=== PATIENT | female | born 1960 | race Caucasian/White ===

== ENCOUNTER → 2018-02-18 | Outpatient (CLI) | payer BC ==
[~2018-02-18] MED LIST: VICODIN 5/500 505 MG PO; Zofran4 MG PO
--- NOTE | ~2018-02-18 | EKG ---
[place], [place] ELECTROCARDIOGRAM REPORT NAME: HAVEN ASHER UNIT #: [id number] ROOM: DOCTOR: EPIPHBRONWYN DRAFT REPORT BIRTHDATE: [birth year] [facility] Test Date: 2018-02-18 Test Time: 09:27:48 Pat Name: HAVEN ASHER Department: Room: Gender: [employer] Clerk: PAWEL : 1960 Requested By: HERBIE VILLAGRAN Order Number: [id number] Reading MD: Brenden Ludwig MD Measurements Intervals [place] Rate: 63 P: 22 DC: 128 QRS: 15 QRSD: 94 T: 26 QT: 404 QTc: 414 Interpretive Statements Sinus rhythm Electronically Signed On 02-18-2018 14:54:14 PDT by Brenden Ludwig MD CM:EKGRPT:ELECTROCARDIOGRAM REPORT [id number] HERBIE LOO DRAFT REPORT HERBIE VILLAGRAN DO
[2018-02-18 09:49] LABS: BILIRUBIN NEGATIVE (NEGATIVE); BLOOD 1+ (NEGATIVE); CLARITY CLEAR (CLEAR); COLOR YELLOW (YELLOW); GLUCOSE NEGATIVE (NEGATIVE); KETONE NEGATIVE (NEGATIVE); LEUKO ESTERASE NEGATIVE (NEGATIVE); NITRITE NEGATIVE (NEGATIVE); SPECIFIC GRAVITY 1.015 (1.005-1.030); UROBILINOGEN 0.2 E.U./dl (0.2-1.0)
[2018-02-18 10:01] LABS: BASO % 0.8 % (0.0-1.0); EOS # 0.1 10*3/uL (0.0-0.4); HEMATOCRIT 38.4 % (37.0-47.0); HEMOGLOBIN 12.1 g/dl (12.0-16.0); LYMPH # 1.6 10*3/uL (1.3-4.4); LYMPH % 40.6 % (27.0-41.0); MEAN CELL VOLUME 92.8 fl (81.0-99.0); MEAN CORPUSCULAR HGB 29.2 pg (27.0-31.0); MEAN CORPUSCULAR HGB CONC 31.5 g/dl (33.0-37.0); MEAN PLATELET VOLUME 10.8 fl (9.6-12.3); MONO # 0.3 10*3/uL (0.1-1.0); MONO % 8.6 % (3.0-9.0); NEUT # 1.9 10*3/uL (2.3-7.9); NEUT % 46.7 % (47.0-73.0); PLATELET COUNT AUTOMATED 155 10*3/uL (130-400); RED BLOOD COUNT 4.14 10*6/uL (4.10-5.10); RED CELL DISTRI WIDTH 13.1 % (0-14.5)
[2018-02-18 10:09] LABS: EPITHELIAL CELLS 0-2; WBC 0-2 wbc/hpf (0-5)
[2018-02-18 10:14] LABS: ACT PARTIAL THROMBO TIME 24.9 SECONDS (20.8-31.5); ALBUMIN 4.3 gm/dl (3.1-4.5); ALKALINE PHOSPHATASE 62 U/L (45-117); BUN 20 mg/dl (7-24); CHLORIDE 106 mmol/L (98-107); CREATININE 1.04 mg/dL (0.55-1.02); INTERNATIONAL NORM RATIO 0.9 (2.0-3.5); POTASSIUM 4.2 mmol/L (3.5-5.1); SGOT/AST 19 IU/L (3-35); SGPT/ALT 27 U/L (12-78); SODIUM 143 mmol/L (136-145); TOTAL PROTEIN 7.3 gm/dL (6.4-8.2)
== END | disposition home or self-care (01) ==
LOC: LAB 08:58
PROVIDERS: Orthopaedic Surgery
DX: Z01.818 Encounter for other preprocedural examination (principal); M19.90 Unspecified osteoarthritis, unspecified site; R53.83 Other fatigue; R06.02 Shortness of breath; E03.9 Hypothyroidism, unspecified

== ENCOUNTER 2019-08-12 12:41 | Inpatient (IN) | payer BC ==
[2019-08-12] VITALS (7 sets, daily range): BP systolic 107–123; BP diastolic 39–65
[~2019-08-12] VITALS: Ht 160 cm; Wt 80.4 kg
[2019-08-12 13:04] LABS: HEMATOCRIT 37.6 % (37.0-47.0); HEMOGLOBIN 12.4 g/dl (12.0-16.0); MEAN CORPUSCULAR HGB 29.7 pg (27.0-31.0); PLATELET COUNT AUTOMATED 109 10*3/uL (130-400); RED BLOOD COUNT 4.18 10*6/uL (4.10-5.10); RED CELL DISTRI WIDTH 12.8 % (0-14.5); WHITE BLOOD COUNT 8.1 10*3/uL (4.8-10.8)
[2019-08-12 13:13] LABS: ACT PARTIAL THROMBO TIME 26.1 SECONDS (20.0-32.1); INTERNATIONAL NORM RATIO 0.9 (2.0-3.5)
[2019-08-12 13:20] LABS: BUN 13 mg/dl (7-24); CHLORIDE 104 mmol/L (98-107); SGOT/AST 17 IU/L (3-35); SGPT/ALT 21 U/L (12-78); SODIUM 136 mmol/L (136-145); TOTAL PROTEIN 7.1 gm/dL (6.4-8.2)
[2019-08-12 13:22] LABS: ALKALINE PHOSPHATASE 67 U/L (45-117)
[2019-08-12 13:24] LABS: ATYPICAL LYMPHS 1 % (0-0); PLATELET SUFFICIENCY LOW (NORMAL); TOTAL CELLS COUNTED 100 #CELLS; TROPONIN I < 0.015 ng/ml (<0.045)
[2019-08-12 14:31] LABS: BILIRUBIN NEGATIVE (NEGATIVE); BLOOD 3+ (NEGATIVE); CLARITY SL CLOUDY (CLEAR); COLOR ORANGE (YELLOW); GLUCOSE NEGATIVE (NEGATIVE); KETONE 1+ (NEGATIVE); LEUKO ESTERASE 2+ (NEGATIVE); NITRITE NEGATIVE (NEGATIVE); PH 6.5 (5.0-9.0); UROBILINOGEN 0.2 E.U./dl (0.2-1.0)
[2019-08-12 14:52] LABS: BACTERIA TRACE; RBC TNTC rbc/hpf (0-2); WBC 16-20 wbc/hpf (0-5)
[2019-08-12] MEDS ORDERED: MELOXICAM15 MG PO (18:31)
[2019-08-12] MEDS ORDERED: PLAQUENIL200 MG PO ×2 (18:33)
[2019-08-12] MEDS ORDERED: Synthroid,Lev100 MCG PO (18:35)
[2019-08-12] MEDS ORDERED: ALLEGRA ALLERG180 M2 PO (18:35)
[2019-08-12] MEDS ORDERED: VITAMIN D32000 UNI1 PO (18:35)
[2019-08-12] MEDS ORDERED: FLONASE ALLERG9.9 ML NAS (18:36)
[2019-08-12] MEDS ORDERED: B-125000 MCG PO (18:36)
[2019-08-12] MEDS ORDERED: TYLENOL EXTRA500 M2 PO (18:37)
[2019-08-12] MEDS ORDERED: AMITRIPTYLINE25 MG PO (18:38)
[2019-08-12] MEDS ORDERED: BENLYSTA200 MG/1 M SQ (18:38)
[2019-08-12] MEDS ORDERED: TOPCARE OMEPRAZ20 MG PO (18:39)
[2019-08-12] MEDS ORDERED: KEFLEX250 MG PO (18:44)
[2019-08-12 20:44] LABS: URINE AMPHETAMINES < 1000 (1000ng/ml); URINE BARBITURATES < 200 (200ng/ml); URINE BENZODIAZEPINES < 200 (200ng/ml); URINE CANNABINOIDS (THC) < 50 (50ng/ml); URINE COCAINE < 300 (300ng/ml); URINE METHADONE < 300 (300ng/ml); URINE OPIATES < 300 (300ng/ml)
[2019-08-12 20:45] LABS: URINE PHENCYCLIDINE < 25 (25ng/ml)
[2019-08-13] VITALS: BP 142/74
[2019-08-13 07:10] LABS: BUN 10 mg/dl (7-24); CHLORIDE 109 mmol/L (98-107); CHOLESTEROL 153 mg/dL (<200); CREATININE 0.93 mg/dL (0.55-1.02); HEMATOCRIT 33.8 % (37.0-47.0); MEAN CELL VOLUME 92.6 fl (81.0-99.0); MEAN CORPUSCULAR HGB 30.1 pg (27.0-31.0); MEAN CORPUSCULAR HGB CONC 32.5 g/dl (33.0-37.0); MEAN PLATELET VOLUME 10.6 fl (9.6-12.3); PLATELET COUNT AUTOMATED 90 10*3/uL (130-400); RED BLOOD COUNT 3.65 10*6/uL (4.10-5.10); SODIUM 139 mmol/L (136-145); TRIGLYCERIDES 60 mg/dl (<150); VLDL CHOLESTEROL 12 mg/dL (6-40); WHITE BLOOD COUNT 7.9 10*3/uL (4.8-10.8)
[2019-08-13 07:21] LABS: HDL CHOLESTEROL 69 mg/dl (40-60); LDL CHOLESTEROL 72 mg/dL (9-159)
[2019-08-13 08:04] LABS: PLATELET SUFFICIENCY LOW (NORMAL); TOTAL CELLS COUNTED 100 #CELLS
[2019-08-13 08:05] VITALS: BP 126/56
[2019-08-13 12:00] VITALS: BP 137/51
[2019-08-13 16:00] VITALS: BP 106/65
[2019-08-13 20:00] VITALS: BP 115/61
[2019-08-14] VITALS: BP 106/42
[2019-08-14 07:52] LABS: BASO % 0.2 % (0.0-1.0); EOS % 0.2 % (1.0-4.0); HEMOGLOBIN 9.8 g/dl (12.0-16.0); LYMPH # 0.6 10*3/uL (1.3-4.4); LYMPH % 9.6 % (27.0-41.0); MEAN CELL VOLUME 92.3 fl (81.0-99.0); MEAN CORPUSCULAR HGB 30.2 pg (27.0-31.0); MEAN CORPUSCULAR HGB CONC 32.7 g/dl (33.0-37.0); MEAN PLATELET VOLUME 10.5 fl (9.6-12.3); MONO # 0.7 10*3/uL (0.1-1.0); MONO % 11.3 % (3.0-9.0); NEUT # 5.1 10*3/uL (2.3-7.9); NEUT % 78.4 % (47.0-73.0); PLATELET COUNT AUTOMATED 75 10*3/uL (130-400); RED BLOOD COUNT 3.25 10*6/uL (4.10-5.10); RED CELL DISTRI WIDTH 12.9 % (0-14.5); WHITE BLOOD COUNT 6.5 10*3/uL (4.8-10.8)
[2019-08-14 08:00] VITALS: BP 136/54
[2019-08-14 08:01] LABS: BUN 9 mg/dl (7-24); CHLORIDE 110 mmol/L (98-107); CREATININE 0.56 mg/dL (0.55-1.02); PHOSPHOROUS 1.5 mg/dL (2.5-4.9); POTASSIUM 3.6 mmol/L (3.5-5.1); SODIUM 139 mmol/L (136-145)
[2019-08-14 12:00] VITALS: BP 119/50
[2019-08-14] MEDS ORDERED: AMOXICILLIN500 M2 PO (16:21)
== END 2019-08-14 17:21 | disposition home or self-care (01) | DRG 690 ==
LOC: ED 12:41 → EDHOLD 16:06 → 4E 16:06
PROVIDERS: Emergency Medicine; Family Medicine; Student in an Organized Health Care Education/Training Program; ADMIT Family Medicine
DX: N12 Tubulo-interstitial nephritis, not specified as acute or chronic (principal); M32.9 Systemic lupus erythematosus, unspecified; E83.39 Other disorders of phosphorus metabolism; R31.9 Hematuria, unspecified; D69.6 Thrombocytopenia, unspecified; E03.9 Hypothyroidism, unspecified; E66.9 Obesity, unspecified; D64.9 Anemia, unspecified; Z96.652 Presence of left artificial knee joint; R73.9 Hyperglycemia, unspecified; Z87.442 Personal history of urinary calculi; Z82.49 Family history of ischemic heart disease and other diseases of the circulatory system; Z88.8 Allergy status to other drugs, medicaments and biological substances; Z79.899 Other long term (current) drug therapy; Z68.31 Body mass index [BMI] 31.0-31.9, adult

== ENCOUNTER → 2020-07-11 | Outpatient (CLI) | payer BC ==
[~2020-07-11] MED LIST changes: +ALLEGRA ALLERG180 M2 PO; +AMITRIPTYLINE25 MG PO; +AMOXICILLIN500 M2 PO; +B-125000 MCG PO; +BENLYSTA200 MG/1 M SQ; +FLONASE ALLERG9.9 ML NAS; +KEFLEX250 MG PO; +MELOXICAM15 MG PO; +PLAQUENIL200 MG PO; +Synthroid,Lev100 MCG PO; +TOPCARE OMEPRAZ20 MG PO; +TYLENOL EXTRA500 M2 PO; +VITAMIN D32000 UNI1 PO
== END | disposition home or self-care (01) ==
LOC: COVID19 15:47
PROVIDERS: ATTEND Family Medicine
DX: U07.1 COVID-19 (principal)

== ENCOUNTER 2022-11-14 13:05 | Emergency (ER) | payer OTHER, MEDICARE ==
[~2022-11-14] VITALS: Ht 160 cm; Wt 88.9 kg
[2022-11-14] MEDS ORDERED: VIBRAMYCIN100 MG PO (13:30)
== END 2022-11-14 13:49 | disposition home or self-care (01) ==
LOC: ED 13:05
DX: J34.0 Abscess, furuncle and carbuncle of nose (principal); Z87.442 Personal history of urinary calculi; Z88.2 Allergy status to sulfonamides; Z88.8 Allergy status to other drugs, medicaments and biological substances; Z98.51 Tubal ligation status; Z90.49 Acquired absence of other specified parts of digestive tract; Z96.652 Presence of left artificial knee joint; Z98.890 Other specified postprocedural states

== ENCOUNTER 2023-02-03 19:23 | Emergency (ER) | payer OTHER, MEDICARE ==
[~2023-02-03] VITALS: Wt 85.7 kg
[~2023-02-03 19:23] MED LIST changes: +VIBRAMYCIN100 MG PO
[2023-02-03 19:58] LABS: BILIRUBIN Negative (Negative); BLOOD 3+ (Negative); CLARITY Cloudy (Clear); COLOR Yellow (Yellow); GLUCOSE Negative (Negative); KETONE Negative (Negative); LEUKO ESTERASE 3+ (Negative); NITRITE Negative (Negative); PH 5.5 (4.5-8.0); SPECIFIC GRAVITY 1.015 (1.001-1.030)
[2023-02-03 20:09] LABS: BACTERIA 2+; EPITHELIAL CELLS 0-2; WBC 21-30 wbc/hpf (0-5)
[2023-02-03] MEDS ORDERED: CIPRO500 MG PO (20:37)
== END 2023-02-03 20:45 | disposition home or self-care (01) ==
LOC: ED 19:23
PROVIDERS: Internal Medicine
DX: N39.0 Urinary tract infection, site not specified (principal); Z88.8 Allergy status to other drugs, medicaments and biological substances; Z88.2 Allergy status to sulfonamides; Z98.51 Tubal ligation status; Z90.49 Acquired absence of other specified parts of digestive tract; Z96.652 Presence of left artificial knee joint; Z98.890 Other specified postprocedural states; Z87.442 Personal history of urinary calculi

== ENCOUNTER 2024-07-06 10:15 | Emergency (ER) | payer BC, MEDICARE ==
[~2024-07-06] VITALS: Ht 160 cm; Wt 83.9 kg
[~2024-07-06 10:15] MED LIST changes: +CIPRO500 MG PO
[2024-07-06] MEDS ORDERED: GABAPENTIN600 MG PO (10:23)
[2024-07-06] MEDS ORDERED: AMITRIPTYLINE50 MG PO (10:23)
[2024-07-06] MEDS ORDERED: CYCLOBENZAPRINE10 MG PO (10:24)
[2024-07-06] MEDS ORDERED: ROSUVASTATIN CA10 MG PO (10:24)
[2024-07-06] MEDS ORDERED: TOLTERODINE TART1 M1 PO (10:24)
[2024-07-06] MEDS ORDERED: NAPROXEN 250 MG TAB PO ONE (10:50)
[2024-07-06] MEDS ORDERED: METHOCARBAMOL 500 MG TAB PO ONE (12:30)
[2024-07-06] MEDS ORDERED: NAPROSYN500 MG PO (13:19)
[2024-07-06] MEDS ORDERED: METHOCARBAMOL500 M1 PO (13:19)
== END 2024-07-06 13:22 | disposition home or self-care (01) ==
LOC: ED 10:15
DX: S16.1XXA Strain of muscle, fascia and tendon at neck level, initial encounter (principal); G43.909 Migraine, unspecified, not intractable, without status migrainosus; R42 Dizziness and giddiness; Z87.442 Personal history of urinary calculi; Z88.2 Allergy status to sulfonamides; Z88.8 Allergy status to other drugs, medicaments and biological substances; Z96.652 Presence of left artificial knee joint; Z98.890 Other specified postprocedural states; Z90.49 Acquired absence of other specified parts of digestive tract; X58.XXXA Exposure to other specified factors, initial encounter; Y93.89 Activity, other specified; Y92.89 Other specified places as the place of occurrence of the external cause; Y99.8 Other external cause status

== ENCOUNTER → 2024-08-24 | Outpatient (CLI) | payer BC, MEDICARE ==
[~2024-08-24] MED LIST changes: +AMITRIPTYLINE50 MG PO; +CYCLOBENZAPRINE10 MG PO; +GABAPENTIN600 MG PO; +METHOCARBAMOL500 M1 PO; +NAPROSYN500 MG PO; +ROSUVASTATIN CA10 MG PO; +TOLTERODINE TART1 M1 PO
[2024-08-24 10:57] LABS: CHOLESTEROL 147 mg/dL (<200); LDL CHOLESTEROL 67 mg/dL (9-159); TRIGLYCERIDES 63 mg/dl (<150)
== END | disposition home or self-care (01) ==
LOC: LAB 10:12
PROVIDERS: ATTEND Nurse Practitioner Family
DX: Z79.899 Other long term (current) drug therapy (principal)

== ENCOUNTER → 2025-07-18 | Outpatient (CLI) | payer BC, MEDICARE ==
[2025-07-18 10:04] LABS: BASO # 0.0 10*3/uL (0.0-0.1); BASO % 0.5 % (0.0-1.0); EOS # 0.1 10*3/uL (0.0-0.4); EOS % 1.6 % (1.0-4.0); MEAN CELL VOLUME 91.3 fl (81.0-99.0); MEAN CORPUSCULAR HGB 29.7 pg (27.0-31.0); MEAN PLATELET VOLUME 9.7 fl (9.6-12.3); MONO # 0.3 10*3/uL (0.1-1.0); MONO % 6.8 % (3.0-9.0); NEUT # 2.0 10*3/uL (2.3-7.9); NEUT % 53.9 % (47.0-73.0); NUCLEATED RED BLOOD CELL 0.0 % (0.0-0.0); NUCLEATED RED BLOOD CELL 0.0 10*3/uL (0.0-0.0); PLATELET COUNT AUTOMATED 134 10*3/uL (130-400); RED CELL DISTRI WIDTH 13.6 % (0-14.5)
[2025-07-18 10:10] LABS: BILIRUBIN Negative (Negative); BLOOD Trace-Lysed (Negative); CLARITY Clear (Clear); COLOR Yellow (Yellow); KETONE Negative (Negative); LEUKO ESTERASE Trace (Negative); NITRITE Negative (Negative); PH 6.5 (4.5-8.0); SPECIFIC GRAVITY 1.010 (1.001-1.030); UROBILINOGEN 0.2 E.U./dl (0.0-1.0)
[2025-07-18 10:14] LABS: ACT PARTIAL THROMBO TIME 25.0 SECONDS (20.0-32.1)
[2025-07-18 10:32] LABS: BUN 14 mg/dl (9-23); SGPT/ALT 12 U/L (5-49)
[2025-07-18 11:02] LABS: BACTERIA 1+; MUCOUS 2+; YEAST 1+
== END | disposition home or self-care (01) ==
LOC: LAB 09:21
PROVIDERS: ATTEND Orthopaedic Surgery
DX: Z01.818 Encounter for other preprocedural examination (principal)

== ENCOUNTER 2025-08-04 10:09 | Inpatient (IN) | payer BC, MEDICARE ==
[~2025-08-04] VITALS: Ht 157.4 cm; Wt 80.7 kg
[2025-08-04 10:14] VITALS: BP 112/61
[2025-08-04] MEDS ORDERED: SODIUM CHLORIDE 0.9% 1,000 ML IV ONE ×2 (10:35→14:50)
[2025-08-04 10:54] LABS: BASO # 0.0 10*3/uL (0.0-0.1); BASO % 0.0 % (0.0-1.0); EOS # 0.0 10*3/uL (0.0-0.4); EOS % 0.8 % (1.0-4.0); MEAN CELL VOLUME 89.4 fl (81.0-99.0); MEAN CORPUSCULAR HGB 29.2 pg (27.0-31.0); MEAN PLATELET VOLUME 9.9 fl (9.6-12.3); MONO # 0.3 10*3/uL (0.1-1.0); MONO % 9.8 % (3.0-9.0); NEUT # 1.5 10*3/uL (2.3-7.9); NEUT % 55.6 % (47.0-73.0); NUCLEATED RED BLOOD CELL 0.0 % (0.0-0.0); NUCLEATED RED BLOOD CELL 0.0 10*3/uL (0.0-0.0); PLATELET COUNT AUTOMATED 116 10*3/uL (130-400); RED CELL DISTRI WIDTH 13.3 % (0-14.5)
[2025-08-04 11:12] LABS: BUN 12 mg/dl (9-23)
[2025-08-04 13:22] VITALS: BP 125/76
[2025-08-04] MEDS ORDERED: ACETAMINOPHEN 325 MG TAB PO PRN (14:00)
[2025-08-04] MEDS ORDERED: TEMAZEPAM 15 MG CAP PO PRN (14:00)
[2025-08-04] MEDS ORDERED: SODIUM CHLORIDE 0.9% 1,000 ML IV SCH (14:00)
[2025-08-04] MEDS ORDERED: Ondansetron Hydrochloride 4 MG/2 ML VIAL IV PRN (14:00)
[2025-08-04] MEDS ORDERED: Acetaminophen/Hydrocodone 5 MG/325 MG TABLET PO PRN (14:00)
[2025-08-04] MEDS ORDERED: BISACODYL 5 MG TAB PO PRN (14:00)
[2025-08-04 15:35] LABS: BILIRUBIN Negative (Negative); BLOOD Trace-Lysed (Negative); CLARITY Clear (Clear); COLOR Yellow (Yellow); KETONE 1+ (Negative); LEUKO ESTERASE 2+ (Negative); NITRITE Negative (Negative); PH 6.5 (4.5-8.0); SPECIFIC GRAVITY 1.010 (1.001-1.030); UROBILINOGEN 0.2 E.U./dl (0.0-1.0)
[2025-08-04 16:02] LABS: BACTERIA 1+; WBC 21-30 wbc/hpf (0-5)
[2025-08-04 16:09] VITALS: BP 124/79
[2025-08-04 20:00] VITALS: BP 128/58
[2025-08-04] MEDS ORDERED: PHENTERMINE H37.5 M1 PO (20:15)
[2025-08-04] MEDS ORDERED: HYDROXYCHLOROQ200 M1 PO (20:16)
[2025-08-04] MEDS ORDERED: VITAMIN D350 MCG PO (20:16)
[2025-08-04] MEDS ORDERED: KENALOG ORABASE5 GM MM (20:17)
[2025-08-04] MEDS ORDERED: EMGALITY120 MG/1 M SQ (20:18)
[2025-08-04] MEDS ORDERED: ESTRADIOL42.5 GM V (20:20)
[2025-08-04] MEDS ORDERED: MELOXICAM7.5 MG PO (20:23)
[2025-08-05] VITALS: BP 142/63
[2025-08-05 06:27] LABS: BUN 10 mg/dl (9-23); LDL CHOLESTEROL 51 mg/dL (9-159); SGPT/ALT 18 U/L (5-49)
[2025-08-05 06:30] LABS: ACT PARTIAL THROMBO TIME 28.7 SECONDS (20.0-32.1)
[2025-08-05 06:48] LABS: BASO # 0.0 10*3/uL (0.0-0.1); BASO % 0.3 % (0.0-1.0); EOS # 0.0 10*3/uL (0.0-0.4); EOS % 0.3 % (1.0-4.0); MEAN CELL VOLUME 90.9 fl (81.0-99.0); MEAN CORPUSCULAR HGB 28.9 pg (27.0-31.0); MEAN PLATELET VOLUME 10.3 fl (9.6-12.3); MONO # 0.3 10*3/uL (0.1-1.0); MONO % 8.4 % (3.0-9.0); NEUT # 1.9 10*3/uL (2.3-7.9); NEUT % 54.0 % (47.0-73.0); NUCLEATED RED BLOOD CELL 0.0 % (0.0-0.0); NUCLEATED RED BLOOD CELL 0.0 10*3/uL (0.0-0.0); PLATELET COUNT AUTOMATED 116 10*3/uL (130-400); RED CELL DISTRI WIDTH 13.5 % (0-14.5)
[2025-08-05 07:35] LABS: VITAMIN D, 25-HYDROXY 53.1 ng/mL (30-100)
[2025-08-05 08:00] VITALS: BP 128/71
[2025-08-05 12:00] VITALS: BP 129/63
[2025-08-05] MEDS ORDERED: TAMIFLU 75MG CA75 MG PO (12:42)
== END 2025-08-05 16:32 | disposition home or self-care (01) | DRG 312 ==
LOC: ED 10:09 → 5E 13:13 → EDHOLD 13:13 → 5E 14:33
PROVIDERS: Student in an Organized Health Care Education/Training Program; ADMIT Student in an Organized Health Care Education/Training Program; ATTEND Student in an Organized Health Care Education/Training Program
DX: I95.1 Orthostatic hypotension (principal); G90.9 Disorder of the autonomic nervous system, unspecified; B34.9 Viral infection, unspecified; E86.0 Dehydration; Z20.822 Contact with and (suspected) exposure to COVID-19; G43.909 Migraine, unspecified, not intractable, without status migrainosus; E03.9 Hypothyroidism, unspecified; M32.9 Systemic lupus erythematosus, unspecified; E78.5 Hyperlipidemia, unspecified; E66.9 Obesity, unspecified; E55.9 Vitamin D deficiency, unspecified; D72.819 Decreased white blood cell count, unspecified; D64.9 Anemia, unspecified; R74.01 Elevation of levels of liver transaminase levels; Z96.652 Presence of left artificial knee joint; Z88.8 Allergy status to other drugs, medicaments and biological substances; Z87.442 Personal history of urinary calculi; Z91.09 Other allergy status, other than to drugs and biological substances; Z90.49 Acquired absence of other specified parts of digestive tract; Z79.899 Other long term (current) drug therapy; Z79.01 Long term (current) use of anticoagulants; Z79.2 Long term (current) use of antibiotics; Z68.32 Body mass index [BMI] 32.0-32.9, adult